=== PATIENT | female | born 1985 | race Two or more races ===

== ENCOUNTER 2020-12-06 17:09 | Emergency (ER) | payer SELFPAY ==
[~2020-12-06] VITALS: Ht 152.4 cm; Wt 79.4 kg
[2020-12-06 17:29] VITALS: BP 111/66
[2020-12-06] MEDS ORDERED: methylPREDNISolone SOD SUCC 125 MG/2 ML VL IM ONE (17:45)
[2020-12-06] MEDS ORDERED: cefTRIAXone SOD 1,000 MG VL IM ONE (17:45)
[2020-12-06] MEDS ORDERED: ACETAMINOPHEN 500 MG TAB PO ONE (17:45)
== END 2020-12-06 18:10 | disposition home or self-care (01) ==
LOC: ER 17:09
DX: J03.90 Acute tonsillitis, unspecified (principal); Z88.0 Allergy status to penicillin
CPT/HCPCS: 87070; 87077; 87880; 96372; 99284; J0696; J2930

== ENCOUNTER 2021-05-26 12:08 | Emergency (ER) | payer MEDICAID, OTHER ==
[~2021-05-26] VITALS: Ht 157.5 cm; Wt 77.6 kg
[2021-05-26 16:54] VITALS: BP 104/54
== END 2021-05-26 17:42 | disposition home or self-care (01) ==
LOC: ER 12:08
DX: U07.1 COVID-19 (principal); J06.9 Acute upper respiratory infection, unspecified
CPT/HCPCS: 36415; 87426

== ENCOUNTER 2022-04-26 10:47 | Emergency (ER) | payer MEDICAID ==
[~2022-04-26] VITALS: Ht 160 cm; Wt 79.9 kg
[2022-04-26 11:12] VITALS: BP 109/76
[2022-04-26 12:23] LABS: Urine Amorphous Crystal FEW /hpf (None Seen); Urine Bacteria FEW /hpf (None Seen); Urine Blood 2+ /uL (Negative); Urine Mucus FEW (None Seen); Urine Specific Gravity 1.015 (1.001-1.035); Urine WBC 2 /hpf (0 - 5)
[2022-04-26] MEDS ORDERED: TRAM-297 PO (13:37)
[2022-04-26] MEDS ORDERED: traMADol HCL 50 MG TAB PO ONE (13:45)
== END 2022-04-26 13:41 | disposition home or self-care (01) ==
LOC: ER 10:51
DX: R10.9 Unspecified abdominal pain (principal); R50.9 Fever, unspecified; Z88.0 Allergy status to penicillin; Z98.51 Tubal ligation status; Z20.822 Contact with and (suspected) exposure to COVID-19
CPT/HCPCS: 36415; 74176; 81001; 81025; 87426; 87804

== ENCOUNTER 2023-05-08 11:24 | Inpatient (IN) | payer MEDICAID ==
[~2023-05-08] VITALS: Ht 157.5 cm; Wt 80.3 kg
[~2023-05-08 11:24] MED LIST: TRAM-297 PO
[2023-05-08] MEDS ORDERED: IBU600T PO ×4 (11:54→17:45)
[2023-05-08 11:55] LABS: Eosinophils # (auto) 0.1 10 ^3/uL (0-0.8); Monocytes # (auto) 0.6 10 ^3/uL (0-1.3)
[2023-05-08 11:57] LABS: Basophils # (auto) 0.1 10 ^3/uL (0-0.2); Basophils % (auto) 0.7 % (0.0-2.0); Eosinophils % (auto) 0.7 % (0.0-7.0); Hematocrit 34.2 % (36.0-46.0); Hemoglobin 10.7 g/dL (12.2-16.2); Lymphocytes # (auto) 1.9 10 ^3/uL (0.4-5.4); Lymphocytes % (auto) 23.4 % (10.0-50.0); Mean Corpuscular Hemoglobin 23.9 pg (28.0-32.0); Mean Corpuscular Hgb Conc. 31.2 g/dL (32.0-36.0); Mean Corpuscular Volume 76.5 fL (80.0-100.0); Monocytes % (auto) 7.4 % (0.0-12.0); Neutrophils # (auto) 5.4 10 ^3/uL (1.6-8.6); Neutrophils % (auto) 67.8 % (37.0-80.0); Red Blood Cells 4.47 10^6/uL (4.0-5.20); Red Cell Distribution Width 17.6 % (11.8-14.3)
[2023-05-08 12:09] LABS: Alanine Aminotransferase 21 U/L (7-40); Albumin 4.6 g/dL (3.2-4.8); Alkaline Phosphatase 68 U/L (46-116); Anion Gap 7 (5-15); Aspartate Aminotransferase 19 U/L (13-40); BUN/Creatinine Ratio 10.7 (10.0-20.0); Blood Urea Nitrogen 9 mg/dL (9-23); Calcium 8.9 mg/dL (8.7-10.4); Carbon Dioxide 24 mmol/L (20-30); Chloride 107 mmol/L (98-107); Glucose 98 mg/dL (74-106); Magnesium 2.1 mg/dL (1.6-2.6); Potassium 3.8 mmol/L (3.5-5.1); Sodium 138 mmol/L (136-145)
[2023-05-08 12:10] LABS: Bilirubin, Total 0.3 mg/dL (0.2-1.0); Total Protein 7.1 g/dL (5.7-8.2)
[2023-05-08 12:13] LABS: INR 0.96 (0.9-1.15); Partial Thromboplastin Time 29.4 SEC (24.5-34.5); Prothrombin Time 10.1 sec (9.3-11.8)
[2023-05-08 14:02] LABS: Amphetamine Screen, Urine Neg (NEGATIVE); Barbiturate Scree,Urine Neg (NEGATIVE); Benzodiazephine Screen, Urine Neg (NEGATIVE); Cannabinoid Screen, Urine Neg (NEGATIVE); Cocaine Screen, Urine Neg (NEGATIVE); Opiate Scree,Urine Neg (NEGATIVE); Phencyclidine Screen, Urine Neg (NEGATIVE)
[2023-05-08 14:18] LABS: Urine Bacteria NONE SEEN /hpf (None Seen); Urine Blood 2+ /uL (Negative); Urine Clarity HAZY (Clear); Urine Color Colorless (Yellow); Urine Protein, UAD Negative (Negative); Urine Specific Gravity 1.014 (1.001-1.035); Urine Urobilinogen Normal (Negative); Urine WBC 3 /hpf (0 - 5); Urine pH 6.5 (5.0-8.0)
[2023-05-08] MEDS ORDERED: IOHEXOL 350 MG/ML 100ML IJ ONE (15:49)
[2023-05-08] MEDS ORDERED: NITROGLYCERIN 0.4 MG SL TAB SL PRN (17:45)
[2023-05-08] MEDS ORDERED: MORPHINE SULFATE 4 MG/ML SYR/VIAL IV PRN (17:45)
[2023-05-08] MEDS ORDERED: ONDANSETRON HCL 4 MG/2 ML VIAL IV PRN (17:45)
[2023-05-08] MEDS ORDERED: ACETAMINOPHEN 325 MG TAB PO PRN (17:45)
[2023-05-08] MEDS ORDERED: ENOXAPARIN SOD 40 MG/0.4 ML SYRINGE SC ONE (18:30)
[2023-05-08 18:36] LABS: LDL Cholesterol 117 mg/dL (< 100); Triglycerides 115 mg/dL (< 150)
[2023-05-08 18:38] LABS: Cholesterol 169 mg/dL (< 200); HDL Cholesterol 52 mg/dL (40-59)
[2023-05-08] MEDS ORDERED: SERT-160 PO (21:05)
[2023-05-08 22:00] VITALS: BP 118/75; PULSE 69; RESP 16; TEMP 98.3; O2SAT 100
[2023-05-08] MEDS ORDERED: ENOXAPARIN SOD 80 MG/0.8ML SYRINGE SC SCH (22:00)
[2023-05-08 22:45] VITALS: PULSE 75
[2023-05-09] VITALS (8 sets, daily range): BP systolic 101–118; BP diastolic 51–69; PULSE 60–79; RESP 14–21; TEMP 97.6–98.2; O2SAT 96–100
[2023-05-09] MEDS: ATORVASTATIN 20 MG TAB PO SCH ×2 (00:08→22:33)
[2023-05-09] MEDS: METOPROLOL TARTRATE 25 MG TAB PO SCH ×3 (00:08→22:32)
[2023-05-09 06:16] LABS: Basophils # (auto) 0.1 10 ^3/uL (0-0.2); Eosinophils # (auto) 0.1 10 ^3/uL (0-0.8); Hemoglobin 9.5 g/dL (12.2-16.2); White Blood Cell 9.1 10^3/uL (4.4-10.8)
[2023-05-09 06:19] LABS: Basophils % (auto) 0.6 % (0.0-2.0); Eosinophils % (auto) 1.3 % (0.0-7.0); Hematocrit 30.1 % (36.0-46.0); Lymphocytes # (auto) 2.3 10 ^3/uL (0.4-5.4); Lymphocytes % (auto) 25.8 % (10.0-50.0); Mean Corpuscular Hemoglobin 23.8 pg (28.0-32.0); Mean Corpuscular Hgb Conc. 31.5 g/dL (32.0-36.0); Mean Corpuscular Volume 75.5 fL (80.0-100.0); Monocytes # (auto) 0.7 10 ^3/uL (0-1.3); Neutrophils # (auto) 5.8 10 ^3/uL (1.6-8.6); Neutrophils % (auto) 64.3 % (37.0-80.0); Nucleated Red Blood Cells % 0.1 %; Red Blood Cells 3.99 10^6/uL (4.0-5.20); Red Cell Distribution Width 17.2 % (11.8-14.3)
[2023-05-09 07:13] LABS: Alanine Aminotransferase 16 U/L (7-40); Albumin 4.2 g/dL (3.2-4.8); Alkaline Phosphatase 59 U/L (46-116); Anion Gap 6 (5-15); Aspartate Aminotransferase 17 U/L (13-40); Blood Urea Nitrogen 9 mg/dL (9-23); Calcium 8.7 mg/dL (8.7-10.4); Carbon Dioxide 25 mmol/L (20-30); Chloride 106 mmol/L (98-107); Glucose 83 mg/dL (74-106); Potassium 3.8 mmol/L (3.5-5.1); Sodium 137 mmol/L (136-145)
[2023-05-09 07:14] LABS: Bilirubin, Total 0.3 mg/dL (0.2-1.0); Total Protein 6.5 g/dL (5.7-8.2)
[2023-05-09] MEDS: ASPirin 81 mg TAB PO SCH (11:16)
[2023-05-09] MEDS: DOCUSATE SOD 100 MG CAP PO SCH (11:17)
[2023-05-09] MEDS: ENOXAPARIN SOD 40 MG/0.4 ML SYRINGE SC SCH (11:17)
[2023-05-09] MEDS ORDERED: HYDROcodone-ACET 5/325MG TAB PO PRN (22:15)
[2023-05-10 05:00] VITALS: BP 105/59; PULSE 61; RESP 16; TEMP 97.7; O2SAT 100
[2023-05-10 07:30] VITALS: PULSE 60
[2023-05-10] MEDS ORDERED: TRAM50TA2 PO (08:19)
[2023-05-10 08:56] VITALS: BP 103/58; PULSE 100; RESP 21; TEMP 98; O2SAT 94
[2023-05-10] MEDS: METOPROLOL TARTRATE 25 MG TAB PO SCH (09:43)
[2023-05-10] MEDS: DOCUSATE SOD 100 MG CAP PO SCH (09:43)
[2023-05-10] MEDS: ASPirin 81 mg TAB PO SCH (09:43)
[2023-05-10] MEDS: ENOXAPARIN SOD 40 MG/0.4 ML SYRINGE SC SCH (09:43)
[2023-05-10 10:32] VITALS: BP 103/58; PULSE 100; TEMP 98
[2023-05-10 13:00] VITALS: BP 100/48; PULSE 59; RESP 20; TEMP 97.6; O2SAT 100
== END 2023-05-10 15:20 | disposition home or self-care (01) | DRG 203 ==
LOC: ER 11:24 → TELE 17:42 → TELE-CENTR 20:55
PROVIDERS: ADMIT Nurse Practitioner Family; ATTEND Family Medicine
DX: R07.89 Other chest pain (principal); I51.4 Myocarditis, unspecified; D50.9 Iron deficiency anemia, unspecified; E66.9 Obesity, unspecified; E78.5 Hyperlipidemia, unspecified; D75.839 Thrombocytosis, unspecified; Z83.3 Family history of diabetes mellitus; Z88.0 Allergy status to penicillin; Z68.32 Body mass index [BMI] 32.0-32.9, adult
CPT/HCPCS: 36415; 71045; 71275; 80053; 80061; 80307; 81001; 81025; 83735; 83880; 84484; 85025; 85379; 85610; 85730; 93005; 96372; G0378

== ENCOUNTER 2023-10-27 19:46 | Inpatient (IN) | payer MEDICAID ==
[~2023-10-27] VITALS: Ht 152.4 cm; Wt 80.9 kg
[~2023-10-27 19:46] MED LIST changes: +SERT-160 PO; -TRAM-297 PO; +TRAM50TA2 PO
[2023-10-27] MEDS ORDERED: SODIUM CHLORIDE 0.9% 1,000 ML IV ONE (21:00)
[2023-10-27 21:10] LABS: Basophils # (auto) 0.1 10 ^3/uL (0-0.2); Basophils % (auto) 0.3 % (0.0-2.0); Eosinophils # (auto) 0.1 10 ^3/uL (0-0.8); Eosinophils % (auto) 0.4 % (0.0-7.0); Hematocrit 33.9 % (36.0-46.0); Hemoglobin 10.3 g/dL (12.2-16.2); Lymphocytes # (auto) 0.8 10 ^3/uL (0.4-5.4); Lymphocytes % (auto) 5.2 % (10.0-50.0); Mean Corpuscular Hemoglobin 22.3 pg (28.0-32.0); Mean Corpuscular Hgb Conc. 30.5 g/dL (32.0-36.0); Mean Corpuscular Volume 73.1 fL (80.0-100.0); Monocytes # (auto) 0.6 10 ^3/uL (0-1.3); Monocytes % (auto) 4.1 % (0.0-12.0); Red Blood Cells 4.64 10^6/uL (4.0-5.20); Red Cell Distribution Width 17.6 % (11.8-14.3); White Blood Cell 15.6 10^3/uL (4.4-10.8)
[2023-10-27 21:19] LABS: Chloride 109 mmol/L (98-107); Potassium 3.7 mmol/L (3.5-5.1); Sodium 140 mmol/L (136-145)
[2023-10-27 21:20] LABS: Anion Gap 12 (5-15); Calcium 9.5 mg/dL (8.7-10.4); Carbon Dioxide 19 mmol/L (20-30)
[2023-10-27 21:21] LABS: Urine Bacteria None Seen /hpf (None Seen)
[2023-10-27 21:25] LABS: BUN/Creatinine Ratio 12.5 (10.0-20.0); Blood Urea Nitrogen 13 mg/dL (9-23); Glucose 141 mg/dL (74-106)
[2023-10-27 21:31] LABS: Urine Blood 3+ /uL (Negative); Urine Clarity Turbid (Clear); Urine Color Yellow (Yellow); Urine Mucus FEW (None Seen); Urine Protein, UAD 1+ (Negative); Urine Specific Gravity 1.041 (1.001-1.035); Urine Urobilinogen 2 mg/dL (Negative); Urine WBC 3 /hpf (0 - 5)
[2023-10-27] MEDS: metroNIDAZOLE 500MG/100ML 100 ML IV ONE (22:45)
[2023-10-27 23:13] LABS: Lactic Acid w/Reflex 2.4 mmol/L (0.4-2.0)
[2023-10-27] MEDS ORDERED: MORPHINE SULFATE INJ 2 MG/ml SYRG IV PRN (23:30)
[2023-10-27] MEDS ORDERED: NITROGLYCERIN 0.4 MG SL TAB SL PRN (23:30)
[2023-10-28] MEDS: D5W/SOD CHL 0.45% 1,000 ML IV SCH (07:30)
[2023-10-28] MEDS: MORPHINE SULFATE INJ 2 MG/ml SYRG IV ONE (08:28)
[2023-10-28] MEDS: levoFLOXacin 500MG 100 ML IV ONE (08:28)
[2023-10-28] MEDS: ONDANSETRON HCL 4 MG/2 ML VIAL IV ONE (08:28)
[2023-10-28] MEDS: metroNIDAZOLE 500MG/100ML 100 ML IV SCH (08:29)
[2023-10-28] MEDS: MAALOX PLUS or MAALOX 30 ML PO ONE (08:29)
[2023-10-28 09:25] VITALS: BP 120/55; PULSE 63; RESP 18; TEMP 98.1; O2SAT 100
[2023-10-28 09:33] VITALS: PULSE 63; RESP 18; O2SAT 100
[2023-10-28] MEDS: PANTOPRAZOLE 40 MG/10 ML VIAL INJ IV SCH (10:25)
[2023-10-28] MEDS: ENOXAPARIN SOD 40 MG/0.4 ML SYRINGE SC SCH (10:25)
[2023-10-28 12:38] VITALS: BP 105/56; PULSE 68; RESP 18; TEMP 98; O2SAT 100
[2023-10-28] MEDS: metroNIDAZOLE 500 MG TAB PO SCH (14:56)
[2023-10-28 15:34] LABS: Basophils # (auto) 0 10 ^3/uL (0-0.2); Basophils % (auto) 0.4 % (0.0-2.0); Eosinophils # (auto) 0.1 10 ^3/uL (0-0.8); Eosinophils % (auto) 0.9 % (0.0-7.0); Hematocrit 30.7 % (36.0-46.0); Hemoglobin 9.4 g/dL (12.2-16.2); Lymphocytes # (auto) 1.1 10 ^3/uL (0.4-5.4); Lymphocytes % (auto) 13.5 % (10.0-50.0); Mean Corpuscular Hemoglobin 22.6 pg (28.0-32.0); Mean Corpuscular Hgb Conc. 30.6 g/dL (32.0-36.0); Mean Corpuscular Volume 73.7 fL (80.0-100.0); Monocytes # (auto) 0.6 10 ^3/uL (0-1.3); Monocytes % (auto) 7.4 % (0.0-12.0); Neutrophils # (auto) 6.2 10 ^3/uL (1.6-8.6); Neutrophils % (auto) 77.8 % (37.0-80.0); Nucleated Red Blood Cells % 0.1 %; Red Blood Cells 4.17 10^6/uL (4.0-5.20); Red Cell Distribution Width 18.1 % (11.8-14.3)
[2023-10-28 15:45] LABS: Chloride 107 mmol/L (98-107); Potassium 3.5 mmol/L (3.5-5.1); Sodium 139 mmol/L (136-145)
[2023-10-28 15:46] LABS: Anion Gap 9 (5-15); Calcium 8.8 mg/dL (8.7-10.4); Carbon Dioxide 23 mmol/L (20-30)
[2023-10-28 15:51] LABS: BUN/Creatinine Ratio 15.2 (10.0-20.0); Blood Urea Nitrogen 12 mg/dL (9-23); Glucose 95 mg/dL (74-106)
[2023-10-28 16:36] VITALS: BP 105/60; PULSE 69; RESP 16; TEMP 98.4; O2SAT 100
[2023-10-28 20:00] VITALS: BP 101/47; PULSE 79; RESP 16; TEMP 98.1
[2023-10-28 20:42] VITALS: BP 101/47; PULSE 79; RESP 16; TEMP 98.1; O2SAT 99
[2023-10-28] MEDS: levoFLOXacin 500MG 100 ML IV SCH (21:06)
[2023-10-29] VITALS (8 sets, daily range): BP systolic 99–136; BP diastolic 56–82; PULSE 63–71; RESP 14–20; TEMP 97.8–98.8; O2SAT 95–100
[2023-10-29] MEDS: ONDANSETRON HCL 4 MG/2 ML VIAL IV PRN (13:31)
[2023-10-29] MEDS: MORPHINE SULFATE INJ 2 MG/ml SYRG IV PRN (22:09)
[2023-10-30 00:50] VITALS: BP 102/61; PULSE 66; RESP 18; TEMP 97.8; O2SAT 100
[2023-10-30 05:00] VITALS: BP 96/68; PULSE 61; RESP 18; TEMP 98.6; O2SAT 100
[2023-10-30 08:00] VITALS: BP 108/65; PULSE 64; PULSE 70; RESP 16; RESP 18; TEMP 98.7; O2SAT 97; O2SAT 99
[2023-10-30 12:00] VITALS: BP 107/54; PULSE 63; RESP 16; TEMP 98.2; O2SAT 97
[2023-10-30] MEDS ORDERED: METR-344 PO (12:20)
[2023-10-30] MEDS ORDERED: LEVO500T91 PO (12:20)
[2023-10-30 16:00] VITALS: BP 112/86; PULSE 64; RESP 16; TEMP 97.8; O2SAT 95
== END 2023-10-30 18:45 | disposition home or self-care (01) | DRG 241 ==
LOC: ER 19:46 → OVERFLOW 23:24 → TELE-WESTW 10-28 09:16 → WEST WING 10-29 13:20
PROVIDERS: ADMIT Nurse Practitioner; ATTEND Nurse Practitioner
DX: K29.70 Gastritis, unspecified, without bleeding (principal); E87.20 Acidosis, unspecified; K52.9 Noninfective gastroenteritis and colitis, unspecified; E66.9 Obesity, unspecified; Z88.0 Allergy status to penicillin; Z83.3 Family history of diabetes mellitus; Z68.34 Body mass index [BMI] 34.0-34.9, adult; Z79.899 Other long term (current) drug therapy
CPT/HCPCS: 36415; 74176; 80048; 81001; 81025; 83605; 83690; 83735; 85025; 87040; 87493; C9113; G0378; J1956; J2405; J3490

== ENCOUNTER → 2024-11-03 | Outpatient (CLI) | payer MEDICAID ==
[~2024-11-03] MED LIST changes: +LEVO500T91 PO; +METR-344 PO
[2024-11-03 11:45] LABS: Urine Bacteria FEW /hpf (None Seen); Urine Blood 2+ /uL (Negative); Urine Clarity Turbid (Clear); Urine Color Light-Yellow (Yellow); Urine Mucus FEW (None Seen); Urine Protein, UAD Negative (Negative); Urine Specific Gravity 1.018 (1.001-1.035); Urine Squamous Epithelial Cell MOD /hpf (<5); Urine Urobilinogen Normal (Negative); Urine WBC 1 /HPF (0-5); Urine pH 5.5 (5.0-9.0)
== END | disposition home or self-care (01) ==
LOC: LAB 11:26
PROVIDERS: ATTEND Urology
DX: R31.9 Hematuria, unspecified (principal)
CPT/HCPCS: 81001; 87086